=== PATIENT | female | born 1980 | race Caucasian/White ===

== ENCOUNTER 2017-01-07 10:34 | Emergency (ER) | payer OTHER ==
[~2017-01-07] VITALS: Wt 78.0 kg
[2017-01-07 10:39] VITALS: Wt 78.0 kg
[2017-01-07] MEDS ORDERED: IBUPROFEN 600 MG TAB PO ONE (11:30)
[2017-01-07] MEDS ORDERED: HYDROCODONE/APAP (5/325) TAB PO ONE (11:30)
--- NOTE | 2017-01-07 11:46 | RADRPT ---
PROCEDURE: XR Knee. CLINICAL INDICATION: Trauma TECHNIQUE: Three views of the left knee are available for review. COMPARISON: None available FINDINGS: There is mild narrowing of the medial femorotibial compartment with subchondral sclerosis and margin al osteophyte formation. Mild contour abnormality at the lateral tibial plateau, likely sequelae of remote injury. There is marginal osteophyte formation at the joint compartment as well. Marginal osteophytes are present at the patella. A trace joint effusion is present. IMPRESSION: 1. 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 2. Contour abnormality at the lateral tibial plateau presumably from remote trauma. If more acute injury is suspected, consider MRI or CT for better evaluation. 3. Trace joint effusion. RPTAT: UU .Derek Lomeli MD, MD Date Time Electronically viewed and signed by .Derek Lomeli MD, on 01/07/2017 11:46 .d/
--- NOTE | 2017-01-07 14:30 | RADRPT ---
PROCEDURE: CT OF THE LEFT KNEE. CLINICAL INDICATION: Left knee pain.. TECHNIQUE: CT scan of the left knee was performed on a multi -slice scanner. No IV contrast was a dministered. Coronal and sagittal reformatted images were obtained from the axial source images. T he total exam DLP equals 397.36 mGy-cm. The CDTI volume was 18.27 mGy. One or more of the following dose reduction techniques were used: - Automated exposure control. - Adjustment of the mA and/or kV according to patient size . - Use of iterative reconstruction technique. Images were reviewed on a high-resolution PACS workstation. COMPARISON: None. FINDINGS: Medial compartment: There is moderate asymmetrical medial joint space narrowing, greater peripherall y. There are peripheral osteophytes. No evidence for erosive change or fracture. The MCL density i s intact. Lateral compartment: There is lateral joint space narrowing and there are peripherally directed curv ed spurs indicative of moderate overall arthrosis. No evidence for erosive change or fracture. Intercondylar notch: The ACL and PCL densities are intact. There are notch osteophytes present. Patellofemoral joint: Moderate arthrosis consists of asymmetrical joint space narrowing, subcortical sclerosis and osteophyte formation. The lateral aspect is affected to a greater degree suggesting excessive lateral pressure syndrome. No evidence for fracture or bone destructive change. Tendon d ensities are intact. Other findings: There is synovitis and a moderate joint effusion. IMPRESSION: 1. Tricompartmental arthrosis affecting the patellofemoral joint to the greatest degree. 2. No evidence for fracture. 3. Synovitis a moderate joint effusion. No erosive changes are seen. RPTAT: XX .Doug Castañeda MD, Date Time Electronically viewed and signed by .Doug Castañeda MD, MD on 01/07/2017 14:30 .T/
[2017-01-07] MEDS ORDERED: TRAM50TA2 PO (14:33)
--- NOTE | 2017-01-07 14:48 | ERD ---
ER Documentation Chief Complaint Date/Time DATE: 01/07/17 TIME: 14:38 Chief Complaint L KNEE PAIN AND LIMITED ROM FROM BLUNT TRAUMA SINCE 2 DAYS HPI This 36-year-old female presents with left knee pain after hitting it on the edge of a bed 2 days ago. She has some unspecified previous problems of the left knee and complains of persistent pain and bruising. She denies any weakness, calf swelling or shortness of breath ROS All systems reviewed and are negative except as per history of present illness. Medications Home Meds Active Scripts Tramadol HCl (Tramadol HCl) 50 Mg Tablet, 50 MG PO Q4 Y for PAIN, #20 TAB Prov:JUDI BYRNES MD 01/07/17 Allergies Allergies: Coded Allergies: codeine (Verified Allergy, Unknown, 01/07/17) ibuprofen (Verified Allergy, Unknown, 01/07/17) PMhx/Soc History of Surgery: Yes (CHOLECYSTECTOMY ) Anesthesia Reaction: No Hx Neurological Disorder: No Hx Respiratory Disorders: No Hx Cardiac Disorders: No Hx Psychiatric Problems: No Hx Miscellaneous Medical Probl: No Hx Alcohol Use: No Hx Substance Use: No Hx Tobacco Use: No Smoking Status: Never smoker Physical Exam Vitals Vital Signs Date Time Temp Pulse Resp B/P Pulse Ox O2 Delivery O2 Flow Rate FiO2 01/07/17 10:39 98.5 82 21 128/60 98 Physical Exam Const: [] Alert, [id number]. Head: Atraumatic Eyes: Normal Conjunctiva ENT: Normal External Ears, Nose and Mouth. Neck: Full range of motion..~ No meningismus. Resp: Clear to auscultation bilaterally Cardio: Regular rate and rhythm, no murmurs Abd: Soft, non tender, non distended. Normal bowel sounds Skin: No petechiae or rashes Back: No midline or flank tenderness Ext: No cyanosis, or edema there is some tenderness and bruising on the medial joint line and anterior medial joint area. There is no significant deformities appreciated. There is some mild generalized tenderness. There is no warmth, erythema or significant effusion. There is no calf swelling or Homans sign. Neur: Awake and alert Psych: Normal Mood and Affect Results 24 hrs Current Medications Medications (Trade) Dose Ordered Sig/Rohini Route PRN Reason Start Time Stop Time Status Last Admin Dose Admin Ibuprofen (Motrin) 600 mg ONCE ONCE PO 01/07/17 11:30 01/07/17 11:30 DC Acetaminophen/ Hydrocodone Bitart ([place] (5/325)) 1 tab ONCE ONCE PO 01/07/17 11:30 01/07/17 11:31 DC 01/07/17 11:16 Procedures/MDM X-ray left knee 3V Interpreted by me: Bones: Possible deformity of the medial tibial plateau. Joints: [No dislocation] Foreign body: [None]. Impression-possible flattening of the plateau with degenerative changes. CT recommended CT of the left knee shows degenerative changes without fracture or dislocation. Patient was placed in left knee immobilizer and given crutches with crutch training. She is given [place] 5 mg by mouth. Patient has left knee pain. Contusion likely but has a significant degenerative changes for age. Patient will be discharged home with instructions to follow-up with orthopedist, ice and elevate at home and follow-up with primary doctor and orthopedist as directed. There is no evidence of septic arthritis, DVT patient should return for new or worsening symptoms such as fevers, redness, new symptoms as directed after instructions. Departure Diagnosis: Primary Impression: Knee injury Encounter type: initial encounter Laterality: left Qualified Code: S89.92XA - Knee injury, left, initial encounter Condition: Stable Patient Instructions: What Is Arthritis?, Knee Sprain Referrals: NIDIA AGUILAR MD Additional Instructions: Studies today show arthritis without fracture. Recommend see orthopedist for further evaluation. Recheck sooner for fevers, redness, new symptoms. May need authorization from primary doctor for orthopedist visit. JUDI BYRNES MD Jan 07, 2017 14:48
[2017-01-07 15:04] VITALS: BP 126/66; PULSE 78; RESP 18; TEMP 98.1
== END 2017-01-07 15:06 | disposition home or self-care (01) ==
LOC: FTE 10:34
DX: S89.92XA Unspecified injury of left lower leg, initial encounter (principal); W22.03XA Walked into furniture, initial encounter; Y92.9 Unspecified place or not applicable
CPT/HCPCS: 29505; 73562; 73700; Z7502; Z7610